=== PATIENT | male | born 1960 | race African-American/Black ===

== ENCOUNTER 2016-08-19 11:25 | Emergency (ER) | payer OTHER ==
[~2016-08-19] VITALS: Ht 172.7 cm; Wt 95.0 kg
[~2016-08-19 11:25] MED LIST: BACLOFEN10 MG PO; HYDROCHLOROTH12.5 M3 PO; MILLIPRED5 MG PO; MOTRIN600 MG PO; TIZANIDINE HCL4 M1 PO; TYLENOL W/COD1 COMB1 PO; VALIUM2 MG PO
[2016-08-19] MEDS ORDERED: HYDROCHLOROTHIA25 MG PO (12:21)
[2016-08-19 12:30] VITALS: BP 150/82
== END 2016-08-19 12:31 | disposition home or self-care (01) ==
LOC: EME 11:25
DX: H00.11 Chalazion right upper eyelid (principal)
CPT/HCPCS: 99281; 99283

== ENCOUNTER 2016-12-31 11:50 | Emergency (ER) | payer OTHER ==
[~2016-12-31] VITALS: Ht 172.7 cm; Wt 93.0 kg
[~2016-12-31 11:50] MED LIST changes: +HYDROCHLOROTHIA25 MG PO
[2016-12-31 12:07] VITALS: BP 169/95
[2016-12-31] MEDS ORDERED: BACLOFEN10 MG PO (15:26)
[2016-12-31] MEDS ORDERED: TYLENOL W/COD1 COMB1 PO (15:26)
== END 2016-12-31 15:42 | disposition home or self-care (01) ==
LOC: EME 11:50
DX: M54.5 Low back pain (principal); G89.29 Other chronic pain
CPT/HCPCS: 99281; 99284

== ENCOUNTER 2017-07-16 11:59 | Inpatient (IN) | payer OTHER ==
[~2017-07-16] VITALS: Ht 172.7 cm; Wt 90.7 kg
[2017-07-16 12:51] LABS: MCH 27.4 PG (29.0-34.0); MCHC 32.6 G/DL (30.0-36.0); MCV 83.9 FL (86-99); PLATELET COUNT 254 K/uL (156-360); RBC DIS.WIDTH-CV 13.3 % (11.8-14.6); RBC DIS.WIDTH-SD 41.1 % (39-53); RED BLOOD COUNT 5.48 M/uL (4.00-5.50); WHITE BLOOD COUNT 19.1 K/uL (4.1-10.2)
[2017-07-16 13:03] LABS: ALBUMIN 4.4 g/dL (3.2-4.8); CHLORIDE 99 mEq/L (99-109); POTASSIUM 3.8 mEq/L (3.7-5.4); SODIUM 135 mEq/L (136-147)
[2017-07-16 13:05] LABS: APPEARANCE SL.HAZY ((CLEAR)); BILIRUBIN NEGATIVE; BLOOD MODERATE; COLOR YELLOW ((YELLOW)); GLUCOSE (STRIP) NEGATIVE; KETONES NEGATIVE; LEUKOCYTES MODERATE; NITRITE NEGATIVE; PROTEIN (STRIP) 30; SPECIFIC GRAVITY 1.027 (1.000-1.030)
[2017-07-16 13:05] LABS: GLUCOSE 171 mg/dL (70-99)
[2017-07-16 13:07] LABS: TOTAL BILIRUBIN 1.4 mg/dL (0.0-1.0)
[2017-07-16 13:09] LABS: ALKALINE PHOSPHATASE 70 IU/L (3-129); CREATININE 1.5 mg/dL (0.6-1.3); GFR ESTIMATE (CALCULATED) > 59 mL/min/ (58.99-99999)
[2017-07-16 13:10] LABS: UREA NITROGEN (BUN) 13 mg/dL (9-23)
[2017-07-16 13:11] LABS: AST (GOT) 30 IU/L (2-34)
[2017-07-16 13:12] LABS: ALT (GPT) 62 IU/L (3-49)
[2017-07-16 13:25] LABS: BACTERIA RARE /HPF; EPITHELIAL CELLS RARE /HPF; MUCUS TRACE /LPF; UCUL ADDED? YES; WHITE BLOOD CELLS 30-40 /HPF (0-5)
[2017-07-16 15:17] LABS: INTER. NORMALIZED RATIO 1.2
[2017-07-16 15:22] LABS: ALBUMIN 4.2 g/dL (3.2-4.8)
[2017-07-16 15:25] LABS: TOTAL PROTEIN 7.8 g/dL (6.4-8.3)
[2017-07-16 15:27] LABS: TOTAL BILIRUBIN 1.2 mg/dL (0.0-1.0)
[2017-07-16 15:28] LABS: ALKALINE PHOSPHATASE 68 IU/L (3-129)
[2017-07-16 15:30] LABS: AST (GOT) 28 IU/L (2-34); DIRECT BILIRUBIN 0.4 mg/dL (0.0-0.3)
[2017-07-16 15:31] LABS: ALT (GPT) 59 IU/L (3-49); LIPASE 8 U/L (1.0-51.0)
[2017-07-16 15:32] LABS: TROP-I INTERPRETATION NEGATIVE; TROPONIN-I < 0.01 ng/mL (0.0-0.30)
[2017-07-16 18:23] VITALS: BP 166/104
[2017-07-16 19:20] VITALS: BP 160/86
[2017-07-17 00:12] VITALS: BP 131/66
[2017-07-17 03:37] VITALS: BP 136/85
[2017-07-17 06:42] LABS: BASOPHIL (%) 0.1 % (0-1); EOSINOPHIL (%) 0.5 % (0-5); EOSINOPHIL COUNT 0.1 K/uL (0-0.3); HEMATOCRIT 42.7 % (38.0-50.0); HEMOGLOBIN 13.6 G/DL (12.5-16.6); IMMATURE GRANULOCYTE (%) 0.7 % (0.0-0.7); LYMPHOCYTE (%) 11.1 % (15-42); LYMPHOCYTE COUNT 1.7 K/uL (1.0-2.8); MCH 26.8 PG (29.0-34.0); MCHC 31.9 G/DL (30.0-36.0); MCV 84.1 FL (86-99); MONOCYTE (%) 10.5 % (3-12); MONOCYTE COUNT 1.6 K/uL (0-0.8); NEUTROPHIL (%) 77.1 % (45-76); NEUTROPHIL COUNT 11.8 K/uL (1.8-6.4); PLATELET COUNT 209 K/uL (156-360); RBC DIS.WIDTH-CV 13.2 % (11.8-14.6); RBC DIS.WIDTH-SD 41.2 % (39-53); RED BLOOD COUNT 5.08 M/uL (4.00-5.50); WHITE BLOOD COUNT 15.3 K/uL (4.1-10.2)
[2017-07-17 07:05] VITALS: BP 144/83
[2017-07-17 07:11] LABS: ALBUMIN 3.6 G/DL (3.2-4.8); ALKALINE PHOSPHATASE 56 IU/L (3-129); ALT (GPT) 37 IU/L (3-49); AST (GOT) 20 IU/L (2-34); CHLORIDE 105 MEQ/L (99-109); POTASSIUM 3.9 MEQ/L (3.7-5.4); SODIUM 139 MEQ/L (136-147); TOTAL PROTEIN 5.9 G/DL (6.4-8.3); UREA NITROGEN (BUN) 12 mg/dL (9-23)
[2017-07-17 07:13] LABS: GFR ESTIMATE (CALCULATED) > 59 mL/min/ (58.99-99999); GLUCOSE 100 mg/dL (70-99)
[2017-07-17 10:57] VITALS: BP 141/79
[2017-07-17 15:03] VITALS: BP 142/90
[2017-07-17 19:44] VITALS: BP 135/78
[2017-07-18 00:40] VITALS: BP 144/69
[2017-07-18 03:19] VITALS: BP 133/71
[2017-07-18 07:02] VITALS: BP 147/88
[2017-07-18 08:15] LABS: HEMATOCRIT 43.1 % (38.0-50.0); HEMOGLOBIN 13.8 G/DL (12.5-16.6); MCH 26.8 PG (29.0-34.0); MCV 83.9 FL (86-99); PLATELET COUNT 230 K/uL (156-360); RBC DIS.WIDTH-CV 13.2 % (11.8-14.6); RBC DIS.WIDTH-SD 40.7 % (39-53); RED BLOOD COUNT 5.14 M/uL (4.00-5.50); WHITE BLOOD COUNT 9.6 K/uL (4.1-10.2)
[2017-07-18] MEDS ORDERED: CIPRO500 MG PO (09:12)
[2017-07-18] MEDS ORDERED: HYDROCHLOROTHIA25 MG PO (09:12)
== END 2017-07-18 10:15 | disposition home or self-care (01) | DRG 872 ==
LOC: EME 11:59 → 5SOUTH 17:09 → EDOF 17:09 → ENRESERV 17:10 → 5SOUTH 18:14
PROVIDERS: Emergency Medicine; Hospitalist; Internal Medicine
DX: A41.9 Sepsis, unspecified organism (principal); N39.0 Urinary tract infection, site not specified; N17.9 Acute kidney failure, unspecified; I10 Essential (primary) hypertension; E83.52 Hypercalcemia; R17 Unspecified jaundice; E86.9 Volume depletion, unspecified; N50.819 Testicular pain, unspecified; Z68.30 Body mass index [BMI] 30.0-30.9, adult; Z87.440 Personal history of urinary (tract) infections; Z79.899 Other long term (current) drug therapy
CPT/HCPCS: 71010; 76770; 80053; 80076; 81003; 83605; 83690; 84484; 85025; 85027; 85610; 85730; 87040; 87086; 93005; 99281; 99285; J0360; J0692; J0696; J1885; J2405; J7030

== ENCOUNTER 2017-08-06 21:40 | Emergency (ER) | payer OTHER ==
[~2017-08-06] VITALS: Ht 172.7 cm; Wt 97.1 kg
[~2017-08-06 21:40] MED LIST changes: +CIPRO500 MG PO
[2017-08-06 22:21] LABS: HEMATOCRIT 40.9 % (38.0-50.0); HEMOGLOBIN 13.3 G/DL (12.5-16.6); MCH 27.1 PG (29.0-34.0); MCHC 32.5 G/DL (30.0-36.0); MCV 83.3 FL (86-99); PLATELET COUNT 236 K/uL (156-360); RBC DIS.WIDTH-SD 39.6 % (39-53); RED BLOOD COUNT 4.91 M/uL (4.00-5.50); WHITE BLOOD COUNT 6.5 K/uL (4.1-10.2)
[2017-08-06 22:31] LABS: ALBUMIN 4.1 g/dL (3.2-4.8)
[2017-08-06 22:32] LABS: CHLORIDE 107 mEq/L (99-109); POTASSIUM 3.4 mEq/L (3.7-5.4); SODIUM 140 mEq/L (136-147)
[2017-08-06 22:34] LABS: GLUCOSE 154 mg/dL (70-99); TOTAL PROTEIN 7.2 g/dL (6.4-8.3)
[2017-08-06 22:36] LABS: TOTAL BILIRUBIN 0.3 mg/dL (0.0-1.0)
[2017-08-06 22:37] LABS: ALKALINE PHOSPHATASE 64 IU/L (3-129)
[2017-08-06 22:38] LABS: CREATININE 0.9 mg/dL (0.6-1.3); GFR ESTIMATE (CALCULATED) > 59 mL/min/ (58.99-99999)
[2017-08-06 22:39] LABS: AST (GOT) 48 IU/L (2-34); UREA NITROGEN (BUN) 11 mg/dL (9-23)
[2017-08-06 22:40] LABS: ALT (GPT) 90 IU/L (3-49)
[2017-08-07] MEDS ORDERED: MOTRIN800 MG PO (03:51)
[2017-08-07 04:31] VITALS: BP 145/91
== END 2017-08-07 04:33 | disposition home or self-care (01) ==
LOC: EME 21:40
DX: J11.2 Influenza due to unidentified influenza virus with gastrointestinal manifestations (principal); R05 Cough; I10 Essential (primary) hypertension
CPT/HCPCS: 71046; 80053; 83605; 85027; 99281; 99284; J7030

== ENCOUNTER 2018-03-10 04:01 | Emergency (ER) | payer OTHER ==
[~2018-03-10] VITALS: Ht 172.7 cm; Wt 95.3 kg
[~2018-03-10 04:01] MED LIST changes: +MOTRIN800 MG PO
[2018-03-10 05:27] LABS: CHLORIDE 108 mEq/L (99-109); POTASSIUM 4.1 mEq/L (3.7-5.4); SODIUM 140 mEq/L (136-147)
[2018-03-10 05:29] LABS: GLUCOSE 176 mg/dL (70-99)
[2018-03-10 05:32] LABS: BASOPHIL (%) 0.6 % (0-1); BASOPHIL COUNT 0.1 K/uL (0-0.1); EOSINOPHIL (%) 3.6 % (0-5); EOSINOPHIL COUNT 0.3 K/uL (0-0.3); HEMOGLOBIN 14.3 G/DL (12.5-16.6); IMMATURE GRANULOCYTE (%) 0.3 % (0.0-0.7); LYMPHOCYTE (%) 38.9 % (15-42); LYMPHOCYTE COUNT 3.4 K/uL (1.0-2.8); MCH 27.7 PG (29.0-34.0); MCHC 33.3 G/DL (30.0-36.0); MCV 83.3 FL (86-99); MONOCYTE (%) 7.9 % (3-12); MONOCYTE COUNT 0.7 K/uL (0-0.8); NEUTROPHIL (%) 48.7 % (45-76); NEUTROPHIL COUNT 4.2 K/uL (1.8-6.4); PLATELET COUNT 270 K/uL (156-360); RBC DIS.WIDTH-CV 13.1 % (11.8-14.6); RBC DIS.WIDTH-SD 39.5 % (39-53); RED BLOOD COUNT 5.16 M/uL (4.00-5.50); WHITE BLOOD COUNT 8.7 K/uL (4.1-10.2)
[2018-03-10 05:33] LABS: GFR ESTIMATE (CALCULATED) > 59 mL/min/ (58.99-99999)
[2018-03-10 05:34] LABS: UREA NITROGEN (BUN) 18 mg/dL (9-23)
[2018-03-10 06:05] VITALS: BP 150/99
== END 2018-03-10 06:11 | disposition home or self-care (01) ==
LOC: EME 04:01
PROVIDERS: Emergency Medicine
DX: I10 Essential (primary) hypertension (principal); R51 Headache
CPT/HCPCS: 70450; 80048; 85025; 99281; 99284